=== PATIENT | female | born 1940 | race Caucasian/White ===

== ENCOUNTER 2016-06-27 15:57 | Observation (INO) | payer OTHER ==
[~2016-06-27] VITALS: Ht 167.6 cm; Wt 67.1 kg
[~2016-06-27 15:57] MED LIST: ABILIFY; ABILIFY5 MG PO; ANTIOXIDANT FO1 EAC1 PO; ANTIOXIDANT FORMULA; BENADRYL25 MG PO; CENTRUM SILVER1 EAC3 PO; CENTRUM SILVER1 EACH PO; CLONAZEPAM0.5 MG PO; CO Q-10100 MG PO; EFFEXOR XR150 MG PO; EVISTA60 MG PO; Effexor XR PO; FERROUS SULFAT325 MG PO; Ginkgo Biloba PO; IRON325 M1 PO; KEFLEX500 MG PO; LACTAID9000 UNIT PO; LIPITOR20 MG PO; LIPITOR40 MG PO; METFORMIN; METFORMIN HCL1000 MG PO; METFORMIN PO; NEXIUM 24HR20 MG PO; NEXIUM PO; NEXIUM20 MG PO; NEXIUM40 MG PO; OXYCODONE HCL5 MG PO; PROBIOTIC1 EAC1 PO; ROPINIROLE HCL5 MG PO; SENNA PLUS TAB1 EACH PO; SYNTHROID50 MCG PO; TYLENOL EXTRA500 MG PO; ULTRAM50 MG PO; VITAMIN B-12250 MCG PO; VITAMIN B12-FO1 EACH PO; VITAMIN D1000 INTUN PO; XARELTO10 MG PO; Z PACK; ZANTAC150 MG PO; [UNRECOGNIZED DRUG - OTHER] PO
[2016-06-27] MEDS ORDERED: LEVOTHYROXINE100 MCG PO (16:53)
[2016-06-27] MEDS ORDERED: MIRTAZAPINE15 MG PO (16:53)
[2016-06-27] MEDS ORDERED: PRAVASTATIN SOD20 MG PO (16:54)
[2016-06-27 17:10] LABS: HEMATOCRIT 37.5 % (36.0-46.0); MCH 29.5 PG (29.0-34.0); MCHC 32.3 G/DL (30.0-36.0); MCV 91.5 FL (83-99); MEAN PLAT.VOLUME 9.4 uM^3 (9.5-12.4); PLATELET COUNT 212 K/uL (156-360); RBC DIS.WIDTH-CV 12.8 % (11.8-14.6); RBC DIS.WIDTH-SD 42.9 % (39-53); WHITE BLOOD COUNT 4.1 K/uL (4.1-10.2)
[2016-06-27 17:18] LABS: CHLORIDE 107 mEq/L (99-109); POTASSIUM 4.2 mEq/L (3.7-5.4); SODIUM 142 mEq/L (136-147)
[2016-06-27 17:21] LABS: GLUCOSE 143 mg/dL (70-99)
[2016-06-27 17:22] LABS: ANION GAP 9 MEQ/L (2-14)
[2016-06-27 17:23] LABS: TOTAL BILIRUBIN 0.3 mg/dL (0.0-1.0)
[2016-06-27 17:24] LABS: ALKALINE PHOSPHATASE 59 IU/L (3-129); GFR ESTIMATE (CALCULATED) 57 mL/min/
[2016-06-27 17:25] LABS: UREA NITROGEN (BUN) 24 mg/dL (9-23)
[2016-06-27 17:28] LABS: LIPASE 27 U/L (1.0-51.0)
[2016-06-27 17:31] LABS: TROP-I INTERPRETATION NEGATIVE; TROPONIN-I < 0.01 ng/mL (0.0-0.30)
[2016-06-27] MEDS ORDERED: B COMPLETE1 EACH PO (19:16)
[2016-06-27] MEDS ORDERED: LACTAID ULT9000 UNIT PO (19:17)
[2016-06-27] MEDS ORDERED: CO Q-10200 MG PO (19:19)
[2016-06-27] MEDS ORDERED: ROPINIROLE HCL0.5 MG PO (19:19)
[2016-06-27] MEDS ORDERED: DAIRY DIGES4500 UNI1 PO (19:20)
[2016-06-27 19:28] LABS: EOSINOPHIL (%) 6.4 % (0-5); EOSINOPHIL COUNT 0.3 K/uL (0-0.3); IMMATURE GRANULOCYTE (%) 0.2 % (0.0-0.7); INSTRUMENT ABS NEUTROPHIL CT 2.3 K/uL; LYMPHOCYTE COUNT 1.1 K/uL (1.0-2.8); MONOCYTE (%) 11.6 % (3-12); MONOCYTE COUNT 0.5 K/uL (0-0.8); NEUTROPHIL (%) 55.2 % (45-76); NEUTROPHIL COUNT 2.3 K/uL (1.8-6.4)
[2016-06-27 20:06] LABS: MAGNESIUM 1.4 mg/dL (1.3-2.7)
[2016-06-27 20:16] VITALS: BP 185/97
[2016-06-27 20:48] LABS: ADD MIUA? NO; BILIRUBIN NEGATIVE; BLOOD NEGATIVE; COLOR YELLOW ((YELLOW)); GLUCOSE (STRIP) NEGATIVE; KETONES NEGATIVE; LEUKOCYTES NEGATIVE; NITRITE NEGATIVE; PROTEIN (STRIP) NEGATIVE; SPECIFIC GRAVITY 1.012 (1.000-1.030); UCUL ADDED? NO; UROBILINOGEN 0.2 MG/DL (0.2-1.0)
[2016-06-28 00:16] VITALS: BP 152/74
[2016-06-28 06:04] VITALS: BP 172/96
[2016-06-28 07:25] VITALS: BP 139/65
[2016-06-28 08:11] LABS: POINT-OF-CARE METER ID UU14162513
[2016-06-28 11:32] VITALS: BP 163/78
[2016-06-28 13:01] LABS: Estimated Average Glucose 126 mg/dL (70-123)
[2016-06-28] MEDS ORDERED: AMLODIPINE BESYL5 MG PO (15:16)
[2016-06-28] MEDS ORDERED: CLONAZEPAM0.5 MG PO (15:16)
[2016-06-28 15:18] VITALS: BP 124/78
[2016-06-28] MEDS ORDERED: EFFEXOR XR150 MG PO (15:19)
[2016-06-28] MEDS ORDERED: EFFEXOR XR37.5 MG PO (15:19)
== END 2016-06-28 16:43 | disposition home or self-care (01) ==
LOC: EME 15:57 → EDOF 19:01 → 5WEST 19:01 → EDOF 19:01 → 5WEST 20:12
PROVIDERS: Emergency Medicine; Hospitalist; Physician Assistant Medical; Student in an Organized Health Care Education/Training Program
DX: R42 Dizziness and giddiness (principal); R11.0 Nausea; E86.0 Dehydration; R07.9 Chest pain, unspecified; I10 Essential (primary) hypertension; E11.9 Type 2 diabetes mellitus without complications; R53.1 Weakness; R53.83 Other fatigue; F32.9 Major depressive disorder, single episode, unspecified; F41.9 Anxiety disorder, unspecified; E78.5 Hyperlipidemia, unspecified; E03.9 Hypothyroidism, unspecified; M06.9 Rheumatoid arthritis, unspecified; Z85.3 Personal history of malignant neoplasm of breast; Z96.653 Presence of artificial knee joint, bilateral
CPT/HCPCS: 70450; 70551; 71020; 80053; 80061; 81003; 82948; 83036; 83690; 83735; 84443; 84484; 85025; 85027; 93005; 93880; 99281; 99285; G0378; J0360; J1644; J7030